=== PATIENT | female | born 1965 | race American Indian/Alaskan Native ===

== ENCOUNTER 2016-11-16 11:58 | Outpatient (CLI) | payer OTHER ==
[2016-11-16] MEDS ORDERED: PROVENTIL IH ONE (12:06)
== END 2016-11-16 11:59 | disposition home or self-care (01) ==
LOC: PF 11:58
PROVIDERS: ATTEND Internal Medicine
DX: I10 Essential (primary) hypertension (principal); F32.9 Major depressive disorder, single episode, unspecified; F41.0 Panic disorder [episodic paroxysmal anxiety]; F41.9 Anxiety disorder, unspecified; M41.9 Scoliosis, unspecified
CPT/HCPCS: 94060; 94640

== ENCOUNTER 2019-04-18 15:51 | Emergency (ER) | payer MEDICARE, OTHER ==
[2019-04-18 15:59] VITALS: BP 144/69
--- NOTE | 2019-04-18 16:28 | Emergency Department Report ---
ED Dysuria HPI - HPI Chief Complaint: Urogenital-Female Stated Complaint: PAINFUL URINATION Duration: 3 Days Location of Discomfort: Urethra (dysuria) Severity: Mild Symptoms: Dysuria: Yes, Frequency: No, Suprapubic Pain: No, Flank Pain: No, Fever: No, Hematuria: No, Abdominal Pain: No, Previous UTI's: Yes Other History: Patient is a 52-year-old postmenopausal woman who comes to the ER complaining of dysuria. She denies fever. She denies back pain. She does endorse frequency and burning with urination. Patient is ambulatory, nontoxic and afebrile on admission to the ER. She denies vaginal discharge. ED Review of Systems ROS: Stated complaint: PAINFUL URINATION Other details as noted in HPI Comment: All other systems reviewed and negative ED Past Medical Hx - Past Medical History Previous Medical History?: Yes Hx Hypertension: Yes (no meds) Hx GERD: Yes (bleeding ulcers) Hx Psychiatric Treatment: Yes (anxiety/depression) - Surgical History Past Surgical History?: Yes Hx Cholecystectomy: Yes - Family History Family history: no significant - Social History Smoking Status: Current Every Day Smoker Substance Use Type: None - Medications Home Medications: Home Medications Medication Instructions Recorded Confirmed Last Taken Type Fluconazole [Diflucan TAB] 150 mg PO ONCE #1 tablet 04/18/19 Unknown Rx Phenazopyridine [Pyridium] 100 mg PO TID PRN #12 tab 04/18/19 Unknown Rx Sulfamethoxazole/Trimethoprim 1 each PO BID #6 tablet 04/18/19 Unknown Rx [Bactrim DS TAB] Dysuria Exam - Exam General: Vital signs noted. No distress. Alert and acting appropriately. Exam: Yes Moist Mucous Membranes, No CVA Tenderness, No Abdominal Tenderness, No Rigidity or Guarding ED Course Vital Signs 04/18/19 15:57 Temperature 98.3 F Pulse Rate 69 Respiratory 16 Rate Blood Pressure 144/69 [Left] O2 Sat by Pulse 98 Oximetry ED Medical Decision Making - Medical Decision Making Labs 04/18/19 16:22 Urine Color Yellow Urine Turbidity Cloudy Urine pH 5.0 Ur Specific Brandt 1.013 Urine Protein 30 mg/dl Urine Glucose (UA) Neg Urine Ketones Neg Urine Blood Mod Urine Nitrite Neg Urine Bilirubin Neg Urine Urobilinogen < 2.0 Ur Leukocyte Esterase Lg Urine WBC (Auto) 103.0 H Urine RBC (Auto) 85.0 U Epithel Cells (Auto) 24.0 H Urine Bacteria (Auto) 2+ Ur Transition Epith Cell 1 Urine Mucus Few NS/ROCEPHIN AND LORTAB GIVE DC HOME WITH DC PLAN OF CARE AND PCP FOLLOW UP Vital Signs 04/18/19 15:57 Temperature 98.3 F Pulse Rate 69 Respiratory 16 Rate Blood Pressure 144/69 [Left] O2 Sat by Pulse 98 Oximetry - Differential Diagnosis uti v pyelo Critical care attestation.: If time is entered above; I have spent that time in minutes in the direct care of this critically ill patient, excluding procedure time. ED Disposition Clinical Impression: UTI (urinary tract infection) Disposition: DC-01 TO HOME OR SELFCARE Is pt being admited?: No Does the pt Need Aspirin: No Condition: Stable Instructions: Urinary Tract Infection in Women (ED) Additional Instructions: DIET TOLERATED MEDS ORDERED TODAY IN ER FOLLOW INSTRUCTIONS ON THE BOTTLE FOLLOW UP PCP WITHIN 48 HOURS TO ENSURE YOU ARE GETTING BETTER ACTIVITY TOLERATED MOTRIN OR TYLENOL FOR PAIN OR FEVER RETURN TO THE ER FOR WORSENING SYMPTOMS NOT RELIEVED BY YOUR MEDICATIONS. Prescriptions: Sulfamethoxazole/Trimethoprim [Bactrim DS TAB] 1 each PO BID #6 tablet Fluconazole [Diflucan TAB] 150 mg PO ONCE #1 tablet Phenazopyridine [Pyridium] 100 mg PO TID PRN #12 tab PRN Reason: Pain , Severe (7-10) Referrals: VAMSHI WHELAN MD [Primary Care Provider] - 3-5 Days [facility] [Outside] - 3-5 Days Time of Disposition: 16:44
[2019-04-18 16:38] LABS: Bacteria,Urine 2+ /HPF (Negative); Bilirubin,Urine NEG (Negative); Blood,Urine MOD (Negative); Color,Urine Yellow (Yellow); Mucus,Urine FEW /HPF; Urobilinogen,Urine < 2.0 mg/dL (<2.0)
[2019-04-18] MEDS ORDERED: ROCEPHIN/NS 1 GM/50 ML 1 GM/50 ML BAG IV ONE (16:42)
[2019-04-18] MEDS ORDERED: NACL 0.9% 1000 ML 1,000 ML IV ONE (16:42)
[2019-04-18] MEDS ORDERED: NORCO 5/325 PO ONE (16:42)
== END 2019-04-18 17:47 | disposition home or self-care (01) ==
LOC: ED 15:51
DX: N39.0 Urinary tract infection, site not specified (principal); I10 Essential (primary) hypertension; K21.9 Gastro-esophageal reflux disease without esophagitis; F17.200 Nicotine dependence, unspecified, uncomplicated; Z90.49 Acquired absence of other specified parts of digestive tract; Z79.899 Other long term (current) drug therapy
CPT/HCPCS: 81001; 96365; 99283; J0696; J7030